=== PATIENT | male | born 2000 | race Caucasian/White ===

== ENCOUNTER 2024-07-29 15:37 | Emergency (ER) | payer MEDICAID ==
[~2024-07-29] VITALS: Ht 175.3 cm; Wt 80.4 kg
[~2024-07-29 15:37] MED LIST: CYCL-837 PO; IBUP-1456 PO
[2024-07-29 17:19] VITALS: BP 130/88; PULSE 99; RESP 20; TEMP 97.9; O2SAT 98
[2024-07-29] MEDS ORDERED: HYDR-4902 PO (17:24)
--- NOTE | 2024-07-29 17:25 | ED.PDOC ---
Eye-HPI HPI Comments This patient is a pleasant 23-year-old male who arrives to the ED today for evaluation of right-sided lower dental pain for the past five days. Patient had a impacted molar removed at that time and subsequent to that event, continues to have severe pain. Patient stated he did follow up with his dentist but was not provided with a stronger pain medication and therefore, arrives today with request for assistance. Patient denies any fever nausea or vomiting. Vital signs were stable on arrival. Patient has been utilizing his antibiotics as directed by his dentist. Chief Complaint: Tooth Pain Time Seen by MD: 16:16 Primary Care Provider: Sonido Harley Reviewed Notes: Nurses Notes Allergies: Coded Allergies: NO KNOWN ALLERGIES (Unverified , 12/28/23) Home Meds Active Scripts Ibuprofen (Ibuprofen) 800 Mg Tab, 1 TAB PO TID PRN, #30 TAB 0 Refills Prov:BOB PARKER 12/29/23 Cyclobenzaprine Hcl (Cyclobenzaprine Hcl) 5 Mg Tab, 1 TAB PO QHSP, #14 TAB 0 Refills Prov:BOB PARKER 12/29/23 Information Source: Patient Mode of Arrival: Ambulatory Timing: Days Duration: Since onset Prehospital treatment: Other (Ibuprofen and Tylenol pain medication) Quality: Pain Past Medical History PAST MEDICAL HISTORY: Denies Past Medical History (Other): Recent right-sided lower wisdom tooth extraction Surgical History: Denies all surgeries Family History Family History: Unknown Social History Smoker: Non-Smoker Alcohol: Denies ETOH Use Drugs: Denies Drug Use Lives In: Home Constitutional: denies: chills, diaphoresis, fatigue, fever, malaise, sweats, weakness, others EENTM: reports: others (Right-sided lower dental pain); denies: blurred vision, double vision, ear bleeding, ear discharge, ear drainage, ear pain, ear ringing, eye pain, eye redness, hearing loss, mouth pain, mouth swelling, nasal d ischarge, nose bleeding, nose congestion, nose pain, photophobia, tearing, throat pain, throat swelling, voice changes Respiratory: denies: cough, hemoptysis, orthopnea, SOB at rest, shortness of breath, SOB with excertion, stridor, wheezing, others Cardiovascular: denies: chest pain, dizzy spells, diaphoresis, Dyspnea on exertion, edema, irregular heart beat, left arm pain, lightheadedness, palpitations, PND, syncope, others Gastrointestinal: denies: abdomen distended, abdominal pain, blood streaked bowels, constipated, diarrhea, dysphagia, difficulty swallowing, hematemesis, melena, nausea, poor appetite, poor fluid intake, rectal bleeding, rectal pain, vomiting, others Genitourinary: denies: burning, dysuria, flank pain, frequency, hematuria, incontinence, penile discharge, penile sore, pain, testicle pain, testicle swelling, urgency, others Neurological: denies: dizziness, fainting, headache, left sided numbness, left sided weakness, numbness, paresthesia, pre-existing deficit, right sided numbness, right sided weakness, seizure, speech problems, tingling, tremors, weakness, others Musculoskeletal: denies: back pain, gout, joint pain, joint swelling, muscle pain, muscle stiffness, neck pain, others Integumetry: denies: bruises, change in color, change in hair/nails, dryness, laceration, lesions, lumps, rash, wounds, others Allergic/Immunocompromised: denies: Difficulty Healing, Frequent Infections, Hives, Itching, others Hematologic/Lymphatic: denies: anemia, blood clots, easy bleeding, easy bruising, swollen glands, others Endocrine: denies: excessive hunger, excessive sweating, excessive thirst, excessive urination, flushing, intolerance to cold, intolerance to heat, unexplained weight gain, unexplained weight loss, others Psychiatric: denies: anxiety, bipolar disorder, depression, hopeless, panic disorder, schizophrenia, sleepless, suicidal, others Physical Exam General Appearance: Moderate Distress (Due to right-sided lower dental pain), Normal HEENT: Pharynx Normal, TMs Normal, Other (Patient reveals an extractions site concern of the right lower wisdom tooth region. Possible dry socket formation. Localized erythema with mild edema. No blood loss.) Neck: Full Range of Motion, Non-Tender, Normal, Normal Inspection Respiratory: Chest Non-Tender, Lungs Clear, No Accessory Muscle Use, No Respiratory Distress, Normal Breath Sounds Cardiovascular: No Edema, No JVD, No Murmur, No Gallop, Normal Peripheral Pulses, Regular Rate/Rhythm Breast Exam: Deferred Gastrointestinal: No Organomegaly, Non Tender, No Pulsatile Mass, Normal Bowel Sounds, Soft Genitalia: Deferred Pelvic: Deferred Rectal: Deferred Extremities: No calf tenderness, Normal capillary refill, Normal inspection, Normal range of motion, Non-tender, No pedal edema Neurologic: Alert, No Motor Deficits, Normal Affect, Normal Mood, No Sensory Deficits Cerebellar Function: Normal Reflexes: Normal Skin: Dry, Normal Color, Warm Lymphatic: No Adenopathy Was a procedure done? Was a procedure done?: No EENT DIFF Eye: N/A Other Differential Diagnosis Post dental extraction pain, dry socket X-Ray, Labs, Meds, VS Vital Signs Date Time Temp Pulse Resp B/P (MAP) Pulse Ox O2 Delivery O2 Flow Rate FiO2 07/29/24 16:06 97.0 100 20 133/92 (106) 99 X-Ray, Labs, Meds, VS Comment Advised patient to utilize pain medication as needed and additionally, patient needs to follow up with his dentist again to rule out any dry socket formation and discussions related to proper pain control status post extraction. Time of 1ST Reevaluation: 17:23 Reevaluation 1ST: Unchanged Consultation: PCP, Other (Dentist) Patient Education/Counseling: Diagnosis, Treatment Family Education/Counseling: Diagnosis, Treatment Departure 1 Departure Time of Disposition: 17:23 Impression: Primary Impression: Pain, dental Additional Impression: Postoperative pain Disposition: 01 HOME / SELF CARE / HOMELESS Condition: Stable Additional Instructions: Advised patient continue with the antibiotics as directed by his dentist and utilize pain medication as needed. Patient needs to follow up with a dentist for discussions related to re-evaluation of extraction site as well as management of proper pain medication. e-Prescriptions Hydrocodone-Acetaminophen (Hydrocodone Bitartrate/AC 5-325 mg) 1 Tab Tab 1 TAB PO Q6HP PRN, #30 TAB Prov: YVONNE LOWE PAC 07/29/24 Discharged With: Self Critical Care Note Critical Care Time?: No Stability Stability form required: No Heart Score Heart Score: Heart Score Response (Comments) Value History N/A 0 EKG N/A 0 Age N/A 0 Risk Factors N/A 0 Troponin N/A 0 Total 0 YVONNE LOWE PAC Jul 29, 2024 17:25
== END 2024-07-29 18:06 | disposition home or self-care (01) ==
LOC: ER 15:37
DX: G89.18 Other acute postprocedural pain (principal); K08.89 Other specified disorders of teeth and supporting structures; Z79.899 Other long term (current) drug therapy